=== PATIENT | female | born 1965 | race Caucasian/White ===

== ENCOUNTER 2020-10-07 20:02 | Emergency (ER) | payer BC, OTHER ==
--- NOTE | 2020-10-07 20:55 | EDM.PDOC ---
ED HPI GENERAL MEDICAL PROBLEM - General Chief Complaint: Respiratory Problem Stated Complaint: CHILLS, CANT STAY AWAKE, DIZZY, CANT SMELL Time Seen by Provider: 10/07/20 21:35 Source of Information: Reports: Patient History Limitations: Reports: No Limitations - History of Present Illness INITIAL COMMENTS - FREE TEXT/NARRATIVE: Pt is here for COVID symptoms. She started getting nasal congestion, sore throat, nausea and diarrhea about 2 weeks ago. She called around town and was told her symptoms were not COVID and she could not get tested. She was starting to feel better, but 4 days ago started to get worse again. She is now coughing with some chest pain and shortness of breath. She decided to come in to the ER when her and her noted they were unable to smell the air freshener. She has been around town and been around family over the last week. 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 [No Known Home Meds] 12/05/16 [History] Past Medical History - Past Health History Medical/Surgical History: Denies Medical/Surgical History Social & Family History - Family History Family Medical History: Unobtainable - Tobacco Use Tobacco Use Status *Q: Never Tobacco User Second Hand Smoke Exposure: No - Caffeine Use Caffeine Use: Reports: Soda - Recreational Drug Use Recreational Drug Use: No ED ROS GENERAL - Review of Systems Review Of Systems: Comprehensive ROS is negative, except as noted in HPI. HEENT: Reports: No Symptoms Respiratory: Reports: Shortness of Breath, Cough Cardiovascular: Reports: Chest Pain. Denies: Dyspnea on Exertion, Lightheadedness Endocrine: Reports: Fatigue ED EXAM, GENERAL - Physical Exam Exam: See Below Exam Limited By: No Limitations General Appearance: Alert, WD/WN, No Apparent Distress Eye Exam: Bilateral Eye: Normal Inspection Ears: Normal External Exam Throat/Mouth: Normal Voice, No Airway Compromise Head: Atraumatic, Normocephalic Neck: Normal Inspection, Supple, Full Range of Motion Respiratory/Chest: No Respiratory Distress, No Accessory Muscle Use, Chest Non- Tender, Wheezing (occasional) Cardiovascular: Normal Peripheral Pulses, Regular Rate, Rhythm, No Murmur GI/Abdominal: Soft, Non-Tender (Female) Exam: Deferred Rectal (Female) Exam: Deferred Back Exam: Normal Inspection, Full Range of Motion Extremities: Normal Inspection, No Pedal Edema Neurological: Alert, Oriented, Normal Cognition, Normal Gait Psychiatric: Normal Affect, Normal Mood Skin Exam: Warm, Dry, Intact, Normal Color, No Rash Course - Vital Signs Last Recorded V/S: Last Vital Signs Temp 99.6 F 10/07/20 20:16 Pulse 115 H 10/07/20 20:16 Resp 20 10/07/20 20:16 BP 93/56 L 10/07/20 20:16 Pulse Ox 98 10/07/20 20:16 - Orders/Labs/Meds Labs: Laboratory Tests 10/07/20 Range/Units 20:08 SARS-CoV-2 RNA (JOSÉ MIGUEL) Positive H (NEGATIVE) Meds: Medications Discontinued Medications Generic Name Dose Route Start Last Admin Trade Name Kailee PRN Reason Stop Dose Admin Azithromycin 500 mg 10/07/20 21:31 Azithromycin 250 Mg Tab PO 10/07/20 21:32 ONETIME ONE Prednisone 40 mg 10/07/20 21:31 Prednisone 20 Mg Tab PO 10/07/20 21:32 ONETIME ONE Departure - Departure Time of Disposition: 21:39 Disposition: Home, Self-Care 01 Condition: Good Clinical Impression: COVID-19 - Discharge Information *PRESCRIPTION DRUG MONITORING PROGRAM REVIEWED*: Not Applicable *COPY OF PRESCRIPTION DRUG MONITORING REPORT IN PATIENT JANICE: Not Applicable Instructions: 10 Things You Can Do to Manage Your COVID-19 Symptoms at Home - CDC (08/13/2019), COVID-19: Quarantine vs. Isolation - [facility] (01/29/2020) Forms: ED Department Discharge Additional Instructions: Prednisone 40 mg daily for 4 additional days Azithromycin 500 mg daily for 4 additional days Quarantine at home for 10 days past when symptoms started to worsen If symptoms worsen, call/return to the ER Sepsis Event Note (ED) - Evaluation Sepsis Screening Result: No Definite Risk - Focused Exam Vital Signs: Vital Signs Temp Pulse Resp BP Pulse Ox 10/07/20 20:16 99.6 F 115 H 20 93/56 L 98
[2020-10-07] MEDS ORDERED: Azithromycin 250 MG Tab PO ONE (21:31)
[2020-10-07] MEDS ORDERED: predniSONE 20 MG Tab PO ONE (21:31)
== END 2020-10-07 21:59 | disposition home or self-care (01) ==
LOC: DL.ED 20:02
DX: U07.1 COVID-19 (principal)
CPT/HCPCS: 99283; A9270-GY; J7512; U0002